=== PATIENT | male | born 1995 | race African-American/Black ===

== ENCOUNTER 2019-07-15 20:54 | Emergency (ER) | payer BC ==
[~2019-07-15] VITALS: Ht 193 cm; Wt 117.9 kg
[2019-07-15 21:00] VITALS: BP 144/83
== END 2019-07-15 21:47 | disposition home or self-care (01) ==
LOC: M.ERS 20:54
DX: S61.012A Laceration without foreign body of left thumb without damage to nail, initial encounter (principal); W26.8XXA Contact with other sharp object(s), not elsewhere classified, initial encounter; Y93.89 Activity, other specified; Y92.89 Other specified places as the place of occurrence of the external cause; Y99.8 Other external cause status

== ENCOUNTER 2019-07-25 12:38 | Emergency (ER) | payer BC ==
[~2019-07-25] VITALS: Ht 193 cm; Wt 120.2 kg
[2019-07-25 12:54] VITALS: BP 149/79
== END 2019-07-25 12:55 | disposition home or self-care (01) ==
LOC: M.ERS 12:38
DX: S61.412D Laceration without foreign body of left hand, subsequent encounter (principal); X58.XXXD Exposure to other specified factors, subsequent encounter